=== PATIENT | female | born 1940 | race Caucasian/White ===

== ENCOUNTER → 2018-01-11 11:10 | Outpatient (CLI) | payer MEDICARE, BC, SELFPAY ==
--- NOTE | 2018-01-11 11:40 | EKG12_ITS ---
Test Reason : PRE OP Blood Pressure : / mmHG Vent. Rate : 064 BPM Atrial Rate : 064 BPM P-R Int : 152 ms QRS Dur : 064 ms QT Int : 392 ms P-R-T Axes : 066 044 075 degrees QTc Int : 404 ms Normal sinus rhythm Possible Left atrial enlargement ST & & T wave abnormaily, nonspecific Abnormal ECG No previous ECGs available Confirmed by KENDRICK AMBRIZ, VONDA ([id number]), videotape editor CLAUDETTE SETH ([id number]) on 01/12/2018 8:04:13 AM Referred By: Gino Shahid Confirmed By:VONDA MARKS MD
[2018-01-11 12:47] LABS: Hematocrit 41.6 % (37-47); Hemoglobin 13.3 g/dl (12.0-15.0); Mean Corpuscular Hgb 28.2 pg (27.0-32.0); Mean Corpuscular Volume 88.1 fL (81-99); Mean Platelet Vol. 10.7 fl (6.2-12.0); Platelet Count 273 K/mm3 (150-450); RBC Distribution Width CV 13.2 % (11.6-14.6); RBC Distribution Width SD 42.1 fl (35.1-43.9); Red Blood Count 4.72 M/mm3 (4.2-5.4); White Blood Count 5.8 K/mm3 (4.4-11.0)
[2018-01-11 12:51] LABS: Scan Indicated on CBC? Y/N NO
[2018-01-11 13:17] LABS: Anion Gap 7 (5-15); BUN 17 mg/dL (7-18); BUN/Creat Ratio 20.7 RATIO (10-20); Calcium,Total 8.9 mg/dL (8.5-10.1); Chloride 104 mmol/L (98-107); Creatinine, Serum 0.82 mg/dL (0.55-1.02); EST Glomerular Filtration Rate 72 mL/min (>60); Est Glom Filt Rate - Afr Amer 87 mL/min (>60); Glucose 73 mg/dL (74-106); Potassium 3.8 mmol/L (3.5-5.1); Sodium Level 141 mmol/L (136-145)
== END ==
PROVIDERS: Referring Provider Otolaryngology; Visit Provider Otolaryngology
DX: Z01.818 Encounter for other preprocedural examination (principal)
CPT/HCPCS: 36415; 80048; 85027; 93005

== ENCOUNTER → 2018-01-16 15:47 | Outpatient (CLI) | payer MEDICARE, BC, SELFPAY ==
--- NOTE | 2018-01-15 | SEP_PTH ---
PATIENT: KRISTIAN HERNANDEZ LOC: [facility] U#:[id number] AGE/SX: 85/F ROOM: RE01/16/[address]: Dr. Gino Shahid MD : 1940 BED: DIS: SPEC #: [id number] RECD: 01/16/18 15:14 STATUS: JELANI MITESH #: [id number] SUNSHINE: 01/15/18 00:[address]: Gino Shahid DEPT: SURGICAL PATHOLOGY RECD BY: Xavi Ceja ENTERED: 01/17/18 08:31 SP TYPE: SEPTUM OTHR DR: Dr. Mandy Aquino, [facility] Tissues: Nasal septum, NOS Procedures: Decalcification bone/plaque Surgery Specimen Level III HEADER OPERATION: Septoplasty PRE-OP DIAGNOSIS: Nasal airway obstruction; deviated septum, right internal valve collapse TISSUE SUBMITTED: Septum MICROSCOPIC DIAGNOSIS Nasal septum, septoplasty: Fragments of hyaline cartilage and bone with focal reactive and reparative change (clinically deviated septum). AM:elver 01/22/18 MICROSCOPIC DESCRIPTION Slides are reviewed. GROSS DESCRIPTION Received is one container labeled with the patient's name and not further designated. The specimen consists of multiple fragments of cartilage and bone that in aggregate measure 3 x 2.5 x 0.3 cm. The entire specimen is submitted in one cassette after decalcification. / SJ:elver 01/17/18 TC:5 CPT: 98798, 61258
--- OUTSIDE RECORDS SUMMARY | 2018-03-04 23:05 | XMS RPT_ITS ---
:1940 Author Organization OHIP Support Name Relationship Address Phone BRANDY HERNANDEZ Unavailable [address] + [place] [address] BRANDY HERNANDEZ Unavailable [address] + [place] [address] BRANDY HERNANDEZ L Unavailable [address] + [place] [address] R Unavailable Unavailable Unavailable BRANDY HERNANDEZ L Unavailable [address] + [place] [address] R Unavailable Unavailable Unavailable BRANDY HERNANDEZ L Unavailable [address] + [place] [address] R Unavailable Unavailable Unavailable LAN HERNANDEZALD Unavailable [address] + [place] [address] BRANDY HERNANDEZ Unavailable [address] + [place] [address] BRANDY HERNANDEZ Unavailable [address] + [place] [address] LUSUETLANBRANDY Unavailable [address] + [place] [address] BRANDTKETINOTLANBRANDY Unavailable [address] + [place] [address] SVETATLANBRANDY Unavailable [address] + [place] [address] BRANDTKETINOTLANBRANDY Unavailable [address] + [place] [address] BRANDY HERNANDEZ Unavailable [address] + [place] [address] BRANDY HERNANDEZ Unavailable [address] + [place] [address] BRANDY HERNANDEZ Unavailable [address] + [facility] [place] [address] Care Team Providers Name Role Phone CRYSTAL BELLE MD Attending Unavailable EMMA, NAYELI Primary Care Unavailable CRYSTAL BELLE MD Attending Unavailable EMMA, NAYELI Primary Care Unavailable EMMA, NAYELI Attending Unavailable EMMA, NAYELI Primary Care Unavailable JAYJAY GARCIA MD Attending Unavailable EMMA, NAYELI Primary Care Unavailable HERRERA FARFAN, DR. HOA Menendez Attending Unavailable EMMA, NAYELI Primary Care Unavailable ROBIN SCHULTZ, DR. MARTÍNEZ Attending Unavailable EMMA, NAYELI Primary Care Unavailable Zehra, Gino Attending Unavailable Zehra, Gino Referring Unavailable Mandy Aquino Primary Care Unavailable Randy, Boyd Attending Unavailable Zehra, Gino Referring Unavailable Zehra, Gino Attending Unavailable Zehra, Gino Referring Unavailable Mandy Aquino Primary Care Unavailable PROBLEMS PROBLEMS DATE TYPE CONDITION / CODE ATTENDING STATUS SOURCE Admitting Urinary tract ROBIN SCHULTZ, Active [facility] 8 Diagnosis infection, site not DR. MARTÍNEZ [facility] specified / Repository N39.0(ICD-10) Unknown R94.31 - Abnormal Randy, Nato Active [place] 8 electrocardiogram Community [ECG] [EKG] / Hospital R94.31(ICD-10) Repository Admitting Hyperlipidemia, EMMA, Active Amiigo 8 Diagnosis unspecified / NAYELI [facility] E78.5(ICD-10) Repository Admitting Major depressive EMMA, Active Amiigo 8 Diagnosis disorder, single NAYELI [facility] episode, unspecified / Repository F32.9(ICD-10) PROCEDURES PROCEDURES No Procedure Records FoundRESULTS RESULTS Observed: 02/01/2018 Status: F Source: [employer] CUR 9:53 AM [facility] REPOSITORY . MICRO - Microbiology PROCEDURE: Urine Culture [*1] SOURCE: Urine, Clean Catch BODY SITE: COLLECTED DATE/TIME: 02/01/2018 09:53 EST RECEIVED DATE/TIME: 02/01/2018 20:43 EST START DATE/TIME: 02/01/2018 20:43 EST FREE TEXT SOURCE: FINAL REPORTS Final Report [] Verified Date/Time/Personnel: 02/03/2018 09:40 EST >100,000 organisms per mL Escherichia coli PRELIMINARY REPORTS Preliminary Report [] Verified Date/Time/Personnel: 02/02/2018 14:23 EST >100,000 organisms per mL Gram Negative Rods Final identification and SARAH to follow. SUSCEPTIBILITY RESULTS Escherichia coli Antibiotic SARAH Dilutn SARAH Interp Ampicillin >16 Resistant Cefazolin >16 Resistant Cefotaxime <=2 Susceptible Cefuroxime 8 Susceptible Ciprofloxacin <=1 Susceptible Gentamicin >8 Resistant Levofloxacin <=2 Susceptible Meropenem <=1 Susceptible Nitrofurantoin <=32 Susceptible Piperacillin/ 64 Intermediate Tazobactam Tobramycin >8 Resistant Trimethoprim/ >2/38 Resistant Sulfa Performing Locations *1: This test was performed at: [address], [address] [place] [address] Performed By: #### CUR #### [place] [address] SEPTUM Observed: 01/15/2018 Status: F Source: LESLY 12:00 AM [facility] REPOSITORY Patient: KRISTIAN HERNANDEZ : 1940 (77/F) Acct Num: [id number] Phys: Gino Shahid MD Unit Num: [id number] Loc: LABSPEC Specimen: [id number] Received: 01/16/18 - 1514 Spec Type: SEPTUM TISSUES 1 TISSUES: Nasal septum, NOS GROSS DESCRIPTION Received is one container labeled with the patient's name and not further designated. The specimen consists of multiple fragments of cartilage and bone that in aggregate measure 3 x 2.5 x 0.3 cm. The entire specimen is submitted in one cassette after decalcification. / JABARI:elver 01/17/18 TC:5 CPT: 71615, 07067 HEADER OPERATION: Septoplasty PRE-OP DIAGNOSIS: Nasal airway obstruction; deviated septum, right internal valve collapse TISSUE SUBMITTED: Septum MICROSCOPIC DESCRIPTION Slides are reviewed. MICROSCOPIC DIAGNOSIS Nasal septum, septoplasty: Fragments of hyaline cartilage and bone with focal reactive and reparative change (clinically deviated septum). AM:rg 01/22/18 Signed Ziggy Troncoso DO 01/22/18 <signature on file> Performed By: #### PSEP #### [facility] [address] [place], [address] 12 LEAD ELECTROCARDIOGRAM Observed: 01/12/2018 Status: F Source: LESLY 8:04 AM [facility] REPOSITORY [facility] Cardiovascular Services [address] [place] [address] 12 Lead EKG 01/11/18 1152 MR#: [id number] Acct: [id number] Name: KRISTIAN HERNANDEZ Rep #: [id number] : 1940 77 From: Nato Padilla MD Attending Dr: Gino Shahid MD Status: REG CLI Ordering Dr: Gino Shahid MD Date: 01/11/18 Location: LAB Sex: F C Admitted: Test Reason : PRE OP Blood Pressure : / mmHG Vent. Rate : 064 BPM Atrial Rate : 064 BPM P-R Int : 152 ms QRS Dur : 064 ms QT Int : 392 ms P-R-T Axes : 066 044 075 degrees QTc Int : 404 ms Normal sinus rhythm Possible Left atrial enlargement ST AND AND T wave abnormaily, nonspecific Abnormal ECG No previous ECGs available Confirmed by NATO PADILLA MD ([id number]), web content editor CLAUDETTE SETH (56) on 01/12/2018 8:04:13 AM Referred By: Gino Shahid Confirmed By:NATO PADILLA MD 01/12/18 0804 Date Nato Padilla MD CC: Mandy Aquino DO; Gino Shahid MD Signed CBC-COMPLETE BLOOD CNT Collected: 01/11/2018 Status: F Source: LES[place] NO DIFF 11:24 AM [facility] REPOSITORY TYPE CODE TESTS RESULT OUT OF RANGE REFERENCE UNITS LAB L100.1000 4.4-11.0 K/mm3 Normal WBC 5.8 LAB L100.1200 4.2-5.4 M/mm3 Normal RBC 4.72 LAB L100.1300 12.0-15.0 g/dl Normal HGB 13.3 LAB L100.1400 37-47 % Normal HCT 41.6 LAB L100.1500 81-99 fL Normal MCV 88.1 LAB L100.1600 27.0-32.0 pg Normal MCH 28.2 LAB L100.1700 32-36 g/gl Normal MCHC 32.0 LAB L100.1810 11.6-14.6 % Normal RDW CV 13.2 LAB L100.1820 35.1-43.9 fl Normal RDW SD 42.1 LAB L100.1900 150-450 K/mm3 Normal PLT 273 LAB L100.2000 6.2-12.0 fl Normal MPV 10.7 Performed By: #### L100.0500 #### [facility] [address] [place], [address] BASIC METABOLIC Collected: 01/11/2018 Status: F Source: [place] PROFILE (BMP) 11:24 AM [facility] REPOSITORY TYPE CODE TESTS RESULT OUT OF RANGE REFERENCE UNITS LAB L501.0100 74-106 mg/dL Low GLU 73 Result Comment: Please note revised GLUCOSE reference range effective 2017. LAB L501.1000 7-18 mg/dL Normal BUN 17 LAB L501.1100 0.55-1.02 mg/dL Normal CREAT,SERUM 0.82 Result Comment: The validity of the calculated GFR AND GFRAA in patients over 70 years has not been determined. Clinical correlation is essential. LAB L501.1110 >60 mL/min Normal EST GFR 72 Result Comment: Non- GFR Calc LAB L501.1115 >60 mL/min Normal EST GFR - AA 87 Result Comment: GFR Calc LAB L501.1300 10-20 RATIO High BUN/CRE 20.7 LAB L501.2200 8.5-10.1 mg/dL CA Normal 8.9 LAB L501.5300 136-145 mmol/L NA Normal 141 LAB L501.5600 3.5-5.1 mmol/L K Normal 3.8 LAB L501.5900 98-107 mmol/L CL Normal 104 LAB L501.6100 21.0-32.0 mmol/L Normal CO2 30.0 LAB L501.6200 5-15 Normal GAP 7 Performed By: #### L500.2500 #### [facility] [address] [place], [address] MA MAMMOGRAM SCREENING Observed: 07/06/2017 Status: F Source: [facility] BILATERAL W/MARÍA ELENA 9:00 AM [facility]OUNDATION REPOSITORY ORIGINAL FROM: [facility] [address] [place], [place] [address] PROCEDURE FOR: KRISTIAN HERNANDEZ [address] [place] [address] Home: Work: PID#: [id number] Exam#: [id number] : 1940 Age: 77 TO: CRYSTAL BELLE MD [facility] [address] [place], [place] [address] #[id number] DIGITAL SCREENING MAMMOGRAM 3D/2D WITH CAD WITH MEDIOLATERAL OBLIQUE CRANIOCAUDAL: 07/06/2017 Comparison is made to exams dated: 07/05/2016 mammogram - [facility] and 06/29/2015 mammogram - [facility]. There are scattered fibroglandular elements in both breasts. Current study was also evaluated with a Computer Aided Detection (CAD) system. Scattered calcifications are present in both breasts. There is evidence of post surgical and radiation changes associated with the right breast. No significant masses, calcifications, or other findings are seen in either breast. IMPRESSION: BENIGN There is no mammographic evidence of malignancy. A follow- up mammogram in 12 months is recommended. I have personally reviewed the images of the examination and agree with the findings and interpretation. Lul Giles M.D., Jayna LAGUNA MD tbp,yz/:07/06/2017 11:54:41 Sheet Pile Hammer Operator: DIANNE MICHELLE RT(R)(M)(CT) PROCESS CONTROLS TECHNICIAN, [facility] letter sent: Normal BI-RADS 1&2 Mammogram BI-RADS: 2 Benign LIPID Collected: 06/06/2017 Status: F Source: [facility] 9:52 AM [facility] REPOSITORY TYPE CODE TESTS RESULT OUT OF REFERENCE UNITS RANGE LAB CHOL(LOINC 131-200 mg/dL ) Cholesterol 198 Result Comment: Cholesterol Reference Interval: Less than 200 Desirable 200-239 Borderline high risk 240 and above High risk LAB TRIG(LOINC) 40-150 mg/dL Triglycerides 87 Result Comment: Triglyceride Reference Interval: Less than 150 Normal 150-199 Borderline high risk 200-499 High risk 500 or higher Very high risk LAB HD(LOINC) 35-90 mg/dL HDL Cholesterol 67 Result Comment: HDL Reference Interval: Less than 40 Low - high risk 60 or above Optimal/lowers risk LAB LDL(LOINC) 0-130 mg/dL LDL Cholesterol 114 Result Comment: LDL is a calculated result and requires a 12-hr fast. LDL Reference Interval: Less than 100 Optimal 100-129 Near or above optimal 130-159 Borderline high risk 160-189 High risk 190 and above Very high risk Performed By: #### LIPID, CMP, GFR, TSH #### [address] [address] CMP Collected: 06/06/2017 Status: F Source: [facility] 9:52 AM [facility] REPOSITORY TYPE CODE TESTS RESULT OUT OF REFERENCE UNITS RANGE LAB 1547-9 83-110 mg/dL GLUCOSE 94 LAB NA(LOINC) 136-146 mEq/L Sodium Level 137 LAB K(LOINC) 3.5-5.1 mEq/L Potassium Level 4.5 LAB CL(LOINC) 98-107 mEq/L Chloride 101 LAB CO2(LOINC) 23-31 mEq/L CO2 31 LAB EBAL(LOINC mEq/L ) Electrolyte Balance 5.0 LAB BUN(LOINC) 7.0-18.0 mg/dL BUN 17.4 LAB CRE(LOINC) 0.6-1.2 mg/dL Creatinine Lvl (s) 0.9 LAB BC(LOINC) 7-27 ratio BUN/Creatinine 19 Ratio LAB CA(LOINC) 8.4-10.2 mg/dL Calcium Lvl 9.3 LAB PROT(LOINC 6.0-8.3 G/dL ) Total Protein 6.7 LAB ALB(LOINC) 3.4-4.8 G/dL Albumin Level 4.1 LAB GLB(LOINC) G/dL Globulin 2.6 LAB AG(LOINC) 1.1-2.5 ratio A/G Ratio 1.6 LAB BILT(LOINC 0.2-1.0 mg/dL ) Bili Total 0.3 LAB AP(LOINC) 40-135 IU/L Alk Phos 60 LAB AST(LOINC) 10-40 IU/L AST/SGOT 22 LAB ALT(LOINC) 10-35 IU/L ALT/SGPT 14 Performed By: #### LIPID, CMP, GFR, TSH #### [place] [address] .GFR Collected: 06/06/2017 Status: F Source: [employer] 9:52 AM [facility] REPOSITORY TYPE CODE TESTS RESULT OUT OF REFERENCE UNITS RANGE LAB GFRAA(LOINC ml/min/1.73 ) sqm GFR 77 [place] Result Comment: GFR Population mean for , Non- Americans Ages 20-29 = 116 mL/min/1.73 sq.m. Ages 30-39 = 107 mL/min/1.73 sq.m. Ages 40-49 = 99 mL/min/1.73 sq.m. Ages 50-59 = 93 mL/min/1.73 sq.m. Ages 60-69 = 85 mL/min/1.73 sq.m. Ages 70+ = 75 mL/min/1.73 sq.m. Chronic Kidney Disease: Less than 60 mL/min/1.73 square meters End Stage Renal Disease: Less than 15 mL/min/1.73 square meters LAB GFRNO(LOINC) ml/min/1.73sqm GFR Non- >60 Result Comment: GFR Population mean for , Non- Americans Ages 20-29 = 116 mL/min/1.73 sq.m. Ages 30-39 = 107 mL/min/1.73 sq.m. Ages 40-49 = 99 mL/min/1.73 sq.m. Ages 50-59 = 93 mL/min/1.73 sq.m. Ages 60-69 = 85 mL/min/1.73 sq.m. Ages 70+ = 75 mL/min/1.73 sq.m. Chronic Kidney Disease: Less than 60 mL/min/1.73 square meters End Stage Renal Disease: Less than 15 mL/min/1.73 square meters Performed By: #### LIPID, CMP, GFR, TSH #### [place] [address] [place], [place] [address] TSH Collected: 06/06/2017 Status: F Source: [facility] 9:52 AM [facility] REPOSITORY TYPE CODE TESTS RESULT OUT OF RANGE REFERENCE UNITS LAB TSH(LOINC) 0.27-4.20 mcIU/mL TSH 3.77 Performed By: #### LIPID, CMP, GFR, TSH #### [place] [address] [place], [place] [address] ALLERGIES ALLERGIES No Allergies Records FoundENCOUNTERS ENCOUNTERS ADMIT/DISCHARGE ACCOUNT NUMBER ADMITTING ENCOUNTER LOCATION SOURCE CLASS 02/01/2018/02/06/20 [id number] Ambulatory BBuilding:DR Oc Munoz [facility] Repository 01/16/2018 [id number] Ambulatory [facility] ding:[facility]SPEC Repository 01/11/2018 [id number] Ambulatory BMSBuilding: [facility] Repository 01/11/2018 [id number] Ambulatory [facility] ding:LAB Repository 08/04/2017/08/05/19 [id number] Ambulatory [address] ding:[facility] Repository 07/06/2017/07/07/19 [id number] Ambulatory [address] ding:RAD [facility] Repository 06/25/2017/06/26/19 [id number] Emergency BBuilding:DALI Munoz O [facility] Repository 06/06/2017/06/11/19 [id number] Ambulatory [address] ding:[facility] Repository 04/18/2017 [id number] [facility] PAYERS PAYERS ENCOUNTER GUARANTOR PAYER SUBSCRIBER SOURCE [facility]/01/2018 [facility]: [facility] SYSTEMSDOB: [facility] W PART B INSCOPolicy [id number] Repository [address] Number: [address] [place], [place] [id number] [place], [place] [address]Xjz: ([phone]) Date:2018-02-01 09188Ths: (HP) [id number] [phone] Name:PCGS ()Tel: (000) Administrators LLCPO 000-0000 (WP) [address] [address]hjllvjgc, [place] [address]WW: 02/01/2018 Secondary [facility] Insurance:ANTHEM BLUE LUKEHARTDOB: [facility] [id number] Repository Number: [address] [id number] [place], [place] Date:2018-02-01 [address]Ydp: [phone] [id number] Name:R[address] Box ()Tel: [phone]) [phone], [place] 000-0000 (WP) [address]LV: 01/16/2018 KRISTIAN J Primary KRISTIAN J Les[place] [id number] Insurance:MEDICARE LUKEHARTDOB: Community [address] PART A [facility] [id number], [place] Number: Repository [address]Guz: 330 [id number] [phone] () Date:2018-01-16 01/16/2018 Secondary KRISTIAN J [place] Insurance:ANTHEMPolic LUKEHARTDOB: Community y Number: [id number] Hospital [id number] Repository Date:1978-10-40[address]ERZG, [place] [address]MA: 01/16/2018 Tertiary NOT GIVENUNK [place] Insurance:SELF PAY [facility] Number: Effective Repository Date:2018-01-16 01/11/2018 KRISTIAN J Primary KRISTIAN J [place] [id number] [address] Insurance:MEDICARE LUKEHARTDOB: Community [address] [facility] [id number], [place] Number: Repository [address]Ybs: 330 [id number] [phone] (HP) Date:2018-01-11 01/11/2018 Secondary KRISTIAN J [place] Insurance:ANTHEMPolic LUKEHARTDOB: Community y Number: [id number] Hospital [id number] Repository Date:6941-51-98[address]GWZJHHH, [place] [address]AJ: 01/11/2018 Tertiary NOT GIVENUNK [place] Insurance:SELF PAY [facility] Number: Effective Repository Date:2018-01-11 01/11/2018 KRISTIAN J Primary KRISTIAN J [place] [id number] W Insurance:MEDICARE LUKEHARTDOB: Community [address] BPolic [id number], [place] Number: Repository [address]Apf: 330 [id number] [phone] () Date:2018-01-11 01/11/2018 Secondary KRISTIAN J [place] Insurance:ANTHEMPolic LUKEHARTDOB: Community y Number: [id number] Hospital [id number] Repository Date:9552-43-31XN [address]XTGXN [place] [address]RQ: 01/11/2018 Tertiary NOT GIVENUNK [place] Insurance:SELF PAY [facility] Number: Effective Repository Date:2018-01-11 08/04/2017 KRISTIAN J Primary [facility]STIAN J [facility] Insurance:MEDICARE LUKEHARTDOB: Foundation [id number] W PART BPolicy Number: [id number] Repository [address] [id number] [address] [place], [place] Date:2017-07-21 - [place], [place] [address]Lne: [phone] [id number] [phone]: Name:[facility] [phone] (HP)Tel: ([phone]) Administrators LLCPO (HP) (WP) [address] [address]Zmynvkous, 000-0000 (WP) [place] [address]KT: 08/04/2017 Secondary KRISTIAN Luis M [facility] Insurance:SAMANTHA VALDEZB: [facility] [id number] Repository Number: [address] [id number] [place] Date:2017-07-21 [address]Let: [phone] [phone] Name:[address] (HP)Tel: [phone]) [phone], 000-0000 (WP) [address]HF: 07/06/2017 KRISTIAN Luis M [facility] Insurance:MEDICARE LUKEHARTDOB: [facility] W PART BPolicy Number: [id number] Repository [id number] [address] [place], [place] Date:2017-04-18 [place], [place] [address]Kfv: [phone] [phone]: Name:[facility] [phone] (HP)Tel: (999 Administrators LLCPO (HP) (WP) [address] [address]Huxttqxup, 000-0000 (WP) [place] [address]JX: 07/06/2017 Secondary KRISTIAN Luis M [facility] Insurance:SAMANTHA VALDEZB: [facility] [id number] Repository Number: [address] [id number] [facility]INNI[facility] [place] Date:2017-04-18 [address]Dyb: [phone] [phone] Name:[address] Box (HP)Tel: (000) [phone], [place] 000-0000 (WP) [address]TA: 06/25/2017 KRISTIAN J [facility]B: Insurance:MEDICARE [facility]B: [facility] W PART BPolicy Number: [id number] Repository [address] [id number] [address] [place], [place] Date:2017-06-25 - [place] [address]Wul: [phone] [phone]: Name:[facility] [phone] ()Tel: ([phone]) Administrators LLCPO (HP) (WP) [address] [address]Awjugrvgu, 000-0000 (WP) [place] [address]DQ: 06/25/2017 Secondary [facility] Health [facility]: [facility] [id number] Repository Number: [address] [id number] [place] Date:2017-06-25 [address]Knf: [phone] [phone] Name:[facility] Box (HP)Tel: [phone]) [phone], [place] 000-0000 (WP) [address]FJ: 06/06/2017 [facility] Insurance:MEDICARE LUKEHARTDOB: [facility] PART BPolicy Number: [id number] Repository [address] [id number] [facility] [place], [place] Date:2017-06-06 - [place] [address]Jxc: [phone] [phone]: Name:[facility] [phone] ()Tel: (999) Administrators LLCPO (HP) (WP) [address] [address]Xgzfzakou, 000-0000 (WP) [place] [address]BK: 06/06/2017 Secondary [facility] Health Insurance:[facility]SB: [facility] [id number] Repository Number: [address] [id number] [place], [place] Date:2017-06-06 [address]Wed: [phone] [phone] Name:RPO Box (HP)Tel: 000) [phone], 000-0000 (WP) [address]JY: 04/18/2017 [facility]B: Insurance:MEDICARE [facility] ANSONB: [facility] W PART BPolicy Number: [id number] Repository [address] [id number] [address] [place], [place] Date:2017-04-18 - [place], [place] [address]Nex: [phone] [phone]: Name:[facility] 1220 (HP)Tel: (969) Administrators LLCPO (HP) (WP) [address] [address]Gknpyavfd, 000-0000 (WP) [place] [address]DR: 04/18/[address] [facility]: [facility] [id number] Repository Number: [address] [id number] [place], [place] Date:2017-04-18 [address]Tef: [phone] [phone] Name:RPO Box (HP)Tel: (000) [phone], [place] 000-0000 (WP) [address]QQ:
== END ==
PROVIDERS: Referring Provider Otolaryngology; Visit Provider Otolaryngology
DX: J34.2 Deviated nasal septum (principal); J34.89 Other specified disorders of nose and nasal sinuses
CPT/HCPCS: 88304; 88311

== ENCOUNTER → 2018-04-02 08:10 | Outpatient (CLI) | payer MEDICARE, BC, SELFPAY ==
--- NOTE | 2018-04-02 08:13 | CT_ITS ---
STUDY: LOW DOSE CT LUNG CANCER SCREENING REASON FOR EXAM: Female, 78 years old. 40 pack-year history. Quit 2004. History of breast cancer. RADIATION DOSAGE (If Supplied By Facility): CTDIvol = ( 3.02 ) mGy, DLP = ( 104.20 ) mGycm TECHNIQUE: No contrast was administered. Low dose technique was utilized (average mAS-38 and kVp 120). 1.25 mm axial source images with a slice interval of 1.25-mm were reconstructed in lung windows. 2.5 mm axial source images with a slice interval of 2.5-mm were reconstructed in lung windows. 5.0 mm axial source images with a slice interval of 5.0-mm were reconstructed in soft tissue windows. Nodule measured using lung windows on PACS and/or independent workstation with automated measurement of minimum and maximum diameter. Nodule measurement reported as average diameter rounded to the nearest whole number. Growth is defined as an increase ins size of greater than 1.5 mm. COMPARISON: December 13, 2016. NODULES: Nodule #: 1 Density: Solid Lung location: Right upper lobe lobe: Pleural-based Location in series: Series Number: 2 Image: 55 Size - D1 x D2 mm: 2 x 2 mm: 2 mm average diameter Margin: Smooth Shape: Rounded Calcification: No Fat: No Temporal comparison: Stable Nodule #: 2 Density: Solid Lung location: Left lower lobe: Pleural based Location in series: Series Number: 2 Image: 165 Size - D1 x D2 mm: 16 x 12 mm: 14 mm average diameter Margin: Smooth Shape: Oval Calcification: No Fat: No Temporal comparison: Stable Nodule #: 3 Density: Groundglass Lung location: Left lower lobe: Pleural-based Location in series: Series Number: 2 Image: 17 Size - D1 x D2 mm: 4 x 4 mm: 4 mm average diameter Margin: Irregular Shape: Round Calcification: No Fat: No Temporal comparison: Stable Nodule #: 4 Density: Ground glass Lung location: Right lower lobe: 0.9 cm from pleura Location in series: Series Number: 2 Image: 180s to Size - D1 x D2 mm: 7 x 4 mm: 6 mm average diameter Margin: Irregular Shape: Oval Calcification: No Fat: No Temporal comparison: Stable Nodule #: 5 Density: Ground glass Lung location: Left lower lobe: 0.7 cm from pleura Location in series: Series Number: 2 Image: 203 Size - D1 x D2 mm: 6 x 5 mm: 6 mm average diameter Margin: Irregular Shape: Route Calcification: No Fat: No Temporal comparison: Stable Total lung nodules (excluding granulomas): 5 Emphysema: There is diffuse stable emphysematous changes throughout the lungs. There is bilateral apical pleural scarring. Endobronchial lesion: No Aorta: There is atherosclerotic changes of the aorta without aneurysm. Coronary arteries: There are coronary artery calcifications. Heart: The heart is normal in size. Pulmonary artery: Normal Mediastinal nodes: There is stable subcentimeter mediastinal lymphadenopathy. Other chest and abdominal findings: There are degenerative changes of the thoracic spine. CT/Low Dose CT Lung Screening IMPRESSION: Lung-RADS category 4B - Chest CT with or without contrast, PET/CT and/or tissue sampling can be obtained depending on the probability of malignancy and comorbidities. IMPORTANT NOTES FOR USE: ACR Lung-RADS Version 1.0 Assessment Categories Release Date: June 03, 2013 Category: Coded 0-4 bases on nodule(s) with highest degree of suspicion. Negative screen is defined as categories 1 and 2; a positive screen is defined as categories 3 and 4. Category 3 and 4A nodules that are unchanged on interval CT should be coded as category 2, and individuals returned to screening in 12 months. Category 4X: Category 3 or 4 nodules with additional imaging findings that increase the suspicion of lung cancer, such as spiculation, GGN that doubles in size in 1 year, enlarged lymph notes, etc. Category Modifiers: S (significant finding unrelated to lung cancer) and C (prior history of treated lung cancer) may be added to the 0-4 Lung-RADS Electronically Signed: Juan Jackson DO at 17:16 EST Tel [phone], Service support ,
== END ==
PROVIDERS: Referring Provider Internal Medicine Pulmonary Disease; Visit Provider Internal Medicine Pulmonary Disease
DX: Z12.2 Encounter for screening for malignant neoplasm of respiratory organs (principal); Z87.891 Personal history of nicotine dependence
CPT/HCPCS: G0297

== ENCOUNTER → 2019-04-02 12:35 | Outpatient (CLI) | payer MEDICARE, BC, SELFPAY ==
--- NOTE | 2019-04-02 12:38 | CT_ITS ---
STUDY: CT CHEST WITHOUT CONTRAST REASON FOR EXAM: Female, 79 years old. LUNG NODULE f/u RADIATION DOSAGE (If Supplied By Facility): CTDIvol = ( 13.58 ) mGy, DLP = ( 539.58 ) mGycm TECHNIQUE: Transaxial imaging was performed without the administration of intravenous contrast material. Individualized dose optimization techniques were used for this CT. COMPARISON: Previous low-dose CT scan of the chest from 04/02/2018 FINDINGS: The lungs are normal. There is no demonstrated pleural abnormality. Normal heart and pericardium. Coronary calcific arteriosclerosis is identified. Normal mediastinum. Normal hilar regions. Normal unenhanced pulmonary arteries. Normal aorta arch and descending thoracic aorta. Normal osseous structures. In the right breast there are dystrophic calcifications seen in mass lesion which was noted previously. There is architectural distortion and retraction of the right breast parenchyma. This is due to a previous breast lump patient to [place] and probable radiation therapy to the right breast which was noted previously and is unchanged. There is no demonstrated abnormality of the visualized upper abdomen. CT/Chest without Contrast IMPRESSION: 1. Coronary cusp and arteriosclerosis. 2.. Previous right breast lumpectomy and radiation therapy, which is unchanged. 3. Otherwise negative unenhanced CT scan of the chest shows no acute pathology. Electronically Signed: Tato Powers, at 7:54 EST Tel , Service support ,
== END ==
PROVIDERS: Referring Provider Internal Medicine Pulmonary Disease; Visit Provider Internal Medicine Pulmonary Disease
DX: R91.8 Other nonspecific abnormal finding of lung field (principal)
CPT/HCPCS: 71250

== ENCOUNTER → 2020-04-07 13:26 | Outpatient (CLI) | payer MEDICARE, BC, SELFPAY ==
--- NOTE | 2020-04-07 13:28 | CT_ITS ---
STUDY: LOW DOSE CT LUNG CANCER SCREENING REASON FOR EXAM: Female, 80 years old. TOBACCO USE RADIATION DOSAGE (If Supplied By Facility): CTDIvol = ( 2.01 ) mGy, DLP = ( 67.46 ) mGycm TECHNIQUE: No contrast was administered. Low dose technique was utilized (average mAS-38 and kVp 120). 1.25 mm axial source images with a slice interval of 1.25-mm were reconstructed in lung windows. 2.5 mm axial source images with a slice interval of 2.5-mm were reconstructed in lung windows. 5.0 mm axial source images with a slice interval of 5.0-mm were reconstructed in soft tissue windows. Nodule measured using lung windows on PACS and/or independent workstation with automated measurement of minimum and maximum diameter. Nodule measurement reported as average diameter rounded to the nearest whole number. Growth is defined as an increase ins size of greater than 1.5 mm. COMPARISON: Comparison is made with prior study dated 04/02/2019. Status post right mastectomy with a right breast prosthesis. NODULES: There is a faint 4.2 mm noncalcified nodule in the peripheral lateral aspect of the left lower lobe. Stable 1.5 cm x 1.5 cm noncalcified nodule in the medial aspect of the left lower lobe abutting the left cardiac border. Emphysema: Diffuse emphysematous changes worse in the upper lobes with evidence of centrilobular emphysema. Stable bilateral apical scarring. Endobronchial lesion: None Aorta: Atherosclerotic calcification of the aortic arch. Coronary arteries: Coronary artery calcification. Heart: A dual-chamber pacemaker is seen. Mediastinal nodes: Stable small mediastinal lymph nodes Other chest and abdominal findings: CT/Low Dose CT Lung Screening IMPRESSION: Lung-RADS category 2 - Continue annual screening with LDCT in 12 months. IMPORTANT NOTES FOR USE: ACR Lung-RADS Version 1.0 Assessment Categories Release Date: June 03, 2013 Category: Coded 0-4 bases on nodule(s) with highest degree of suspicion. Negative screen is defined as categories 1 and 2; a positive screen is defined as categories 3 and 4. Category 3 and 4A nodules that are unchanged on interval CT should be coded as category 2, and individuals returned to screening in 12 months. Category 4X: Category 3 or 4 nodules with additional imaging findings that increase the suspicion of lung cancer, such as spiculation, GGN that doubles in size in 1 year, enlarged lymph notes, etc. Category Modifiers: S (significant finding unrelated to lung cancer) and C (prior history of treated lung cancer) may be added to the 0-4 Lung-RADS Electronically Signed: Trent Lilly MD at 15:36 EST , Service support ,
== END ==
PROVIDERS: Referring Provider Internal Medicine Pulmonary Disease; Visit Provider Internal Medicine Pulmonary Disease
DX: Z12.2 Encounter for screening for malignant neoplasm of respiratory organs (principal); Z87.891 Personal history of nicotine dependence
CPT/HCPCS: 71271